=== PATIENT | male | born 1995 | race Caucasian/White ===

== ENCOUNTER 2017-02-27 19:54 | Emergency (ER) | payer SELFPAY ==
[~2017-02-27] VITALS: Ht 172.7 cm; Wt 73.0 kg
[2017-02-27] MEDS ORDERED: ACETAMINOPHEN 325MG TABLET PO ONE (21:00)
[2017-02-27 21:13] LABS: BASOPHILS % 0.2 % (0.0-2.0); EOSINOPHILS % 0.4 % (0.0-5.0); HEMATOCRIT. 45.5 % (42.0-52.0); HEMOGLOBIN. 15.5 g/dL (14.0-18.0); LYMPHOCYTES % 16.6 % (20.0-50.0); MEAN CORPUSCULAR VOLUME 88.3 fL (80.0-94.0); MEAN PLATELET VOLUME 8.4 fl (7.4-10.4); MONOCYTES % 8.3 % (2.0-8.0); NEUTROPHILS % 74.5 % (40.0-76.0); PLATELET 228 x1000/uL (130-400); RED BLOOD CELL COUNT 5.15 mill/uL (4.7-6.1); RED CELL DISTRIBUTION WIDTH 12.9 % (11.6-14.6)
[2017-02-27 21:16] LABS: CARBON DIOXIDE 30 mEq/L (21-32); CHLORIDE 106 mEq/L (98-107)
[2017-02-27] MEDS ORDERED: LIDOCAINE HCL 1% 20ML VIAL (Pyxis) INJ INFIL ONE (22:30)
[2017-02-27] MEDS ORDERED: TETANUS, DIPHTHERIA, PERTUSSIS VAC/PF 0.5ML (>7YR OLD) IM ONE (23:15)
[2017-02-27 23:51] VITALS: BP 132/56
== END 2017-02-27 23:57 | disposition home or self-care (01) ==
LOC: ER 21:42
DX: S01.01XA Laceration without foreign body of scalp, initial encounter (principal); W20.8XXA Other cause of strike by thrown, projected or falling object, initial encounter; Y93.I9 Activity, other involving external motion; Y92.89 Other specified places as the place of occurrence of the external cause; Y99.8 Other external cause status
CPT/HCPCS: 12001; 36415; 70450; 80053; 85025; 99285; J3490; X7700; Z7610; 90715

== ENCOUNTER 2017-05-02 14:23 | Emergency (ER) | payer MEDICAID ==
[~2017-05-02] VITALS: Ht 167.6 cm; Wt 64.0 kg
[2017-05-02 14:58] VITALS: BP 122/56
== END 2017-05-02 16:29 | disposition left against medical advice (07) ==
LOC: ER 15:27
DX: Z53.21 Procedure and treatment not carried out due to patient leaving prior to being seen by health care provider (principal)